=== PATIENT | male | born 1960 | race Caucasian/White ===

== ENCOUNTER 2024-07-14 05:51 | Day surgery (SDC) | payer OTHER ==
[~2024-07-14 05:51] MED LIST: BISOPROLOL FUMAR5 MG PO; ELIQUIS5 MG PO; FARXIGA10 MG PO; METFORMIN HCL1000 M2 PO; MICARDIS80 MG PO
[2024-07-14] MEDS ORDERED: CEFAZOLIN SODIUM 1,000 MG in 0.9 % SODIUM CHLORIDE 50 ML IV ONE (08:30)
[2024-07-14] MEDS ORDERED: SUGAMMADEX SODIUM 200 MG/2 ML VIAL IV ONE (10:30)
[2024-07-14] MEDS ORDERED: OxyCODONE HCL/APAP UD (PERCOCET) PO ONE (16:30)
[2024-07-14] MEDS ORDERED: ACETAMINOPHEN 325 MG TABLET PO ONE (16:30)
[2024-07-14] MEDS ORDERED: GABAPENTIN 600 MG TABLET PO ONE (16:30)
[2024-07-14] MEDS ORDERED: MORPHINE SULFATE 4 MG/ML VIAL IV ONE (16:35)
== END 2024-07-14 17:15 | disposition home or self-care (01) ==
LOC: CIR.AMB 05:51
PROVIDERS: ATTEND Surgery
DX: K40.20 Bilateral inguinal hernia, without obstruction or gangrene, not specified as recurrent (principal); K43.2 Incisional hernia without obstruction or gangrene
CPT/HCPCS: 49650; 49593; C1781